=== PATIENT | male | born 1975 | race Caucasian/White ===

== ENCOUNTER 2017-08-05 12:26 | Emergency (ER) | payer OTHER ==
[2017-08-05] MEDS ORDERED: Ketorolac 60 MG/2 ML SDV IM ONE (13:28)
--- NOTE | 2017-08-05 13:38 | EDM.PDOC ---
ED HPI GENERAL MEDICAL PROBLEM - General Chief Complaint: Upper Extremity Injury/Pain Stated Complaint: LEFT ARM PAIN WORK RELATED Time Seen by Provider: 08/05/17 13:25 Source of Information: Reports: Patient History Limitations: Reports: No Limitations - History of Present Illness INITIAL COMMENTS - FREE TEXT/NARRATIVE: HISTORY AND PHYSICAL: History of present illness: [Comes to the emergency room complaining of left upper arm pain. He was lifting a propane tank today to put in his truck when he felt a pop and tearing sensation to his left bicep. He's had difficulty using his arm since this occurred and feels the muscle bunching up in his upper arm. No fever or chills. No other complaints or concerns. This occurred 1 hour prior to arrival in the ER. He has not taken any medication for his symptoms. Has no other complaints or concerns today.] Review of systems: As per history of present illness and below otherwise all systems reviewed and negative. Past medical history: As per history of present illness and as reviewed below otherwise noncontributory. Surgical history: As per history of present illness and as reviewed below otherwise noncontributory. Social history: No reported history of drug or alcohol abuse. Family history: As per history of present illness and as reviewed below otherwise noncontributory. Physical exam: HEENT: Atraumatic, normocephalic. Oral mucous membranes are pink and moist. Extremities: L bicep shows abnormal presentation of the medial aspect of the bicep muscle. Pain with flexion and extension of his elbow. Tender with light palpation of the medial aspect of the bicep. Radial pulse is strong. Cap refill less than 2 seconds. Neurovascular unremarkable. Neuro: Awake, alert, oriented. Motor and sensory unremarkable throughout. Exam nonfocal. Diagnostics: [L humerus x-ray] Therapeutics: [Toradol 60mg IM] Impression: [L upper arm pain, possible medial bicep tear] Plan: [Discussed with patient that his left humerus x-ray is negative for any abnormalities. I'm encouraged him to follow-up with orthopedist early next week for further evaluation as I believe he did tear the distal aspect of his medial left bicep. Rx written for diclofenac 75 mg #30 sig 1 by mouth twice a day 0 refills, hydrocodone 7.5/325 mg #20 sig one by mouth every 6 hours as needed for pain 0 refills. He is placed in a shoulder sling by the nurse and discharge to home with the above prescriptions. All of his questions are answered and concerns are addressed. He is in agreement with today's discussion.] Definitive disposition and diagnosis as appropriate pending reevaluation and review of above. Left Elbow Pain Score (Numeric/FACES): 7 - Related Data Allergies Allergy/AdvReac Type Severity Reaction Status Date / Time Penicillins Allergy Anaphylactic Verified 07/10/16 08:12 Shock Home Meds: Home Meds Hydrochlorothiazide 1 tab PO DAILY 07/10/16 [History] Past Medical History HEENT History: Reports: None Cardiovascular History: Reports: None Respiratory History: Reports: None Genitourinary History: Reports: Renal Calculus Psychiatric History: Reports: None - Past Surgical History Musculoskeletal Surgical History: Reports: Other (See Below) Review of Systems - Review of Systems Review Of Systems: ROS reveals no pertinent complaints other than HPI. ED EXAM, GENERAL - Physical Exam Exam: See Below Course - Vital Signs Last Recorded V/S: Last Vital Signs Temp 99.1 F 08/05/17 15:30 Pulse 70 08/05/17 15:30 Resp 18 08/05/17 15:30 BP 136/81 08/05/17 15:30 Pulse Ox 96 08/05/17 15:30 - Orders/Labs/Meds Orders: Active Orders 24 hr Category Date Time Status Humerus Lt [CR] Stat Exams 08/05/17 13:28 Taken Meds: Medications Discontinued Medications Generic Name Dose Route Start Last Admin Trade Name Freq PRN Reason Stop Dose Admin Ketorolac Tromethamine 60 mg 08/05/17 13:28 08/05/17 13:32 Toradol IM 08/05/17 13:29 60 mg ONETIME ONE Administration Departure - Departure Time of Disposition: 15:00 Disposition: Home, Self-Care 01 Condition: Good Clinical Impression: Left upper arm pain - Discharge Information Instructions: Biceps Tendon Disruption (Distal) Referrals: Michaela Paredes NP [Primary Care Provider] - Forms: ED Department Discharge Additional Instructions: The following information is given to patients seen in the emergency department who are being discharged to home. This information is to outline your options for follow-up care. We provide all patients seen in our emergency department with a follow-up referral. The need for follow-up, as well as the timing and circumstances, are variable depending upon the specifics of your emergency department visit. If you don't have a primary care physician on staff, we will provide you with a referral. We always advise you to contact your personal physician following an emergency department visit to inform them of the circumstance of the visit and for follow-up with them and/or the need for any referrals to a consulting specialist. The emergency department will also refer you to a specialist when appropriate. This referral assures that you have the opportunity for follow-up care with a specialist. All of these measure are taken in an effort to provide you with optimal care, which includes your follow-up. Under all circumstances we always encourage you to contact your private physician who remains a resource for coordinating your care. When calling for follow-up care, please make the office aware that this follow-up is from your recent emergency room visit. If for any reason you are refused follow-up, please contact the [facility] emergency department at and asked to speak to the emergency department charge nurse. [facility] [address], [address] [place] [address] Follow-up with the orthopedist at the clinic listed above. Their office should call you on Monday morning to schedule an appointment. Take medications as prescribed. Wear shoulder sling. Return to ER as needed as discussed. - My Orders Last 24 Hours: My Active Orders 08/05/17 13:28 Humerus Lt [CR] Stat - Assessment/Plan Last 24 Hours: My Active Orders 08/05/17 13:28 Humerus Lt [CR] Stat
[2017-08-05 15:36] VITALS: BP 136/81
--- NOTE | 2017-08-07 06:07 | CR ---
EXAM DATE: 08/05/17 PATIENT'S AGE: 42 Patient: YAQUELIN DUKES Facility: [place], [place] Site . Site : 1975 Study: XRay Extremity Left humerus [id number] 2:01:07 PM Ordering Physician: Doctor Morales Final Report: INDICATION: Left biceps pain. TECHNIQUE: Two views of the left humerus. FINDINGS: No left humeral fracture or dislocation. No intrinsic skeletal lesion. No soft tissue calcifications identified. Impression : Negative left humerus. Dictated by Mariano Mathur MD @ Aug 05 2017 2:34PM (Electronic Signature) Report Signed by Proxy. ADA
== END 2017-08-05 15:34 | disposition home or self-care (01) ==
LOC: MW.ED 12:26
DX: M79.622 Pain in left upper arm (principal); Z88.0 Allergy status to penicillin; Z79.899 Other long term (current) drug therapy; X50.0XXA Overexertion from strenuous movement or load, initial encounter; Y92.89 Other specified places as the place of occurrence of the external cause; Y99.0 Civilian activity done for income or pay
CPT/HCPCS: 73060; 96372; 99283; J1885

== ENCOUNTER 2017-08-09 07:14 | Day surgery (SDC) | payer OTHER ==
[~2017-08-09 07:14] MED LIST: Lidocaine 2% 5 ML SDV ONE; Midazolam 1 MG/ML 2 ML SDV ONE; Ondansetron 4 MG/2 ML SDV ONE; Propofol 200 MG/20 ML SDV ONE; fentaNYL 250 MCG/5 ML SDV ONE
[2017-08-09] MEDS ORDERED: Lactated Ringers 1,000 ML IV SCH ×2 (08:30→09:00)
--- NOTE | 2017-08-09 08:40 | PCM.PREANE ---
Preanesthetic Assessment - Anesthesia/Transfusion/Family Hx Anesthesia History: Prior Anesthesia Without Reaction Family History of Anesthesia Reaction: No Transfusion History: No Prior Transfusion(s) - Review of Systems General: No Symptoms Pulmonary: No Symptoms Cardiovascular: No Symptoms Gastrointestinal: No Symptoms Neurological: No Symptoms Other: Reports: None - Physical Assessment NPO Status Date: 08/08/17 O2 Sat by Pulse Oximetry: 97 Respiratory Rate: 16 Vital Signs: Last Vital Signs Temp 36.7 C 08/09/17 07:20 Pulse 54 L 08/09/17 07:20 Resp 16 08/09/17 07:20 BP 152/74 H 08/09/17 07:20 Pulse Ox 97 08/09/17 07:20 Height: 1.8 m Weight: 113.398 kg ASA Class: 2 Mental Status: Alert & Oriented x3 Airway Class: Mallampati = 2 Dentition: Reports: Normal Dentition ROM/Head Extension: Full Lungs: Clear to Auscultation, Normal Respiratory Effort Cardiovascular: Regular Rate, Regular Rhythm - Allergies Allergies/Adverse Reactions: Allergies Allergy/AdvReac Type Severity Reaction Status Date / Time Penicillins Allergy Anaphylactic Verified 08/08/17 15:33 Shock - Anesthesia Plan Pre-Op Medication Ordered: None - Acknowledgements Anesthesia Type Planned: General Anesthesia Pt an Appropriate Candidate for the Planned Anesthesia: Yes Alternatives and Risks of Anesthesia Discussed w Pt/Guardian: Yes Pt/Guardian Understands and Agrees with Anesthesia Plan: Yes PreAnesthesia Questionnaire HEENT History: Reports: None Cardiovascular History: Reports: None Respiratory History: Reports: None Gastrointestinal History: Reports: None Genitourinary History: Reports: Renal Calculus Musculoskeletal History: Reports: Fracture Other Musculoskeletal History: fx lt foot Neurological History: Reports: None Psychiatric History: Reports: None Endocrine/Metabolic History: Reports: Obesity/BMI 30+ Hematologic History: Reports: None Immunologic History: Reports: None Oncologic (Cancer) History: Reports: None Dermatologic History: Reports: None - Past Surgical History Head Surgeries/Procedures: Reports: None HEENT Surgical History: Reports: Naso-Sinus Surgery, Tonsillectomy Male Surgical History: Reports: Lithotripsy (ES[facility]) Musculoskeletal Surgical History: Reports: Arthroscopic Knee, Other (See Below) Other Musculoskeletal Surgeries/Procedures:: knee surgery x2, surgical repair of fx rt foot - SUBSTANCE USE Smoking Status *Q: Light Tobacco Smoker Tobacco Use Within Last Twelve Months: Snuff/Dip Recreational Drug Use History: No - HOME MEDS Home Medications: Home Meds Hydrochlorothiazide 1 tab PO DAILY 07/10/16 [History] Diclofenac Sodium [Voltaren] 1 tab PO ASDIRECTED PRN 08/08/17 [History] Hydrocodone/Acetaminophen [Hydrocodon-Acetaminoph 7.5-325] 1 tab PO ASDIRECTED PRN 08/08/17 [History] - CURRENT (IN HOUSE) MEDS Current Meds: Current Medications Lactated Ringer's (Ringers, Lactated) 1,000 mls @ 100 mls/hr IV ASDIRECTED CHRISTINA Last Admin: 08/09/17 08:10 Dose: 100 mls/hr Discontinued Medications Fentanyl (Sublimaze) Confirm Administered Dose 250 mcg .ROUTE .STK-MED ONE Stop: 08/09/17 07:10 Lidocaine (Xylocaine-Mpf 2%) Confirm Administered Dose 5 ml .ROUTE .STK-MED ONE Stop: 08/09/17 07:10 Midazolam HCl (Versed 1 Mg/Ml) Confirm Administered Dose 2 mg .ROUTE .STK-MED ONE Stop: 08/09/17 07:10 Midazolam HCl (Versed 1 Mg/Ml) Confirm Administered Dose 2 mg .ROUTE .STK-MED ONE Stop: 08/09/17 07:10 Ondansetron HCl (Zofran) Confirm Administered Dose 4 mg .ROUTE .STK-MED ONE Stop: 08/09/17 07:10 Propofol (Diprivan 20 Ml) Confirm Administered Dose 200 mg .ROUTE .STK-MED ONE Stop: 08/09/17 07:10
[2017-08-09] MEDS ORDERED: Sodium Chloride 0.9% 2.5 ML Syringe FLUSH PRN (08:49)
[2017-08-09] MEDS ORDERED: Sodium Chloride 0.9% 10 ML Syringe FLUSH PRN (08:49)
[2017-08-09] MEDS ORDERED: Ketorolac 10 MG Tab PO PRN (09:15)
[2017-08-09] MEDS ORDERED: Clindamycin Phosphate in D5W 900 MG in Premix Bag 1 BAG IV SCH ×2 (09:15)
[2017-08-09] MEDS ORDERED: Lidocaine 1% 20 ML MDV ONE (09:18)
--- NOTE | 2017-08-09 11:18 | PCM.OPNOTE ---
- General Post-Op/Procedure Note Date of Surgery/Procedure: 08/09/17 Operative Procedure(s): L distal biceps tendon repair Post-Op Diagnosis: L distal biceps tendon rupture Anesthesia Technique: General ET Tube Primary Surgeon: Nataliia Manning Platform Software Engineer: Veronica Luque in mLs: 10 Condition: Good Free Text/Narrative:: #[id number]
[2017-08-09] MEDS: fentaNYL 100 MCG/2 ML SDV IVPUSH PRN ×2 (11:38→12:50)
--- NOTE | 2017-08-09 12:04 | PCM.POSTAN ---
POST ANESTHESIA ASSESSMENT - MENTAL STATUS Mental Status: Alert, Oriented - RESPIRATORY Respiratory Status: Respiratory Rate WNL, Airway Patent, O2 Saturation Stable - CARDIOVASCULAR CV Status: Pulse Rate WNL, Blood Pressure Stable - GASTROINTESTINAL GI Status: No Symptoms - POST OP HYDRATION Hydration Status: Adequate & Stable
--- NOTE | 2017-08-09 12:04 | PCM48HPAN ---
Post Anesthesia Note - EVALUATION WITHIN 48HRS OF ANESTHETIC Vital Signs in Normal Range: Yes Patient Participated in Evaluation: Yes Respiratory Function Stable: Yes Airway Patent: Yes Cardiovascular Function Stable: Yes Hydration Status Stable: Yes Pain Control Satisfactory: Yes Nausea and Vomiting Control Satisfactory: Yes Mental Status Recovered: Yes Resp Rate: 11
[2017-08-09] MEDS: Acetaminophen/HYDROcodone 325-10 MG Tab PO PRN ×2 (12:15→12:50)
--- NOTE | 2017-08-09 12:34 | OR ---
SURGEON: Nataliia Manning MD DATE OF PROCEDURE: 08/09/2017 PREOPERATIVE DIAGNOSIS: Left distal biceps tendon tear. POSTOPERATIVE DIAGNOSIS: Left distal biceps tendon tear. PROCEDURE: Open repair of left distal biceps tendon. JAVA FLEX DEVELOPER: Veronica Luque PA-C. ANESTHESIA: General. ESTIMATED BLOOD LOSS: 10 mL. TOURNIQUET TIME: 0 minutes. COMPLICATIONS: None. DVT PROPHYLAXIS: PAS boot to bilateral lower extremities. IMPLANTS USED: Biomet ToggleLoc distal biceps tendon fixation device. BRIEF HISTORY: Octaviano is a 42-year-old right-hand dominant male, who injured his left upper extremity this past Monday. An MRI did confirm a tear of the distal biceps tendon. 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 I did discuss both surgical and conservative treatment options. He elected to proceed with surgical treatment. The risks and goals of procedure were discussed with the patient and were documented preoperatively. He agreed to proceed. DESCRIPTION OF PROCEDURE: The patient was properly identified and brought to the operating room. He was transferred from the OR cart and placed on the operating table in supine position. General anesthesia was administered. After adequate anesthesia was obtained, the left upper extremity was prepped in standard fashion using ChloraPrep solution. It was then sterilely draped. A time-out was performed to ensure correct site and procedure. Preoperative antibiotics were given. The surgical site had been marked preoperatively. An incision was made over the anterior aspect of the forearm, approximately 3 cm distal to the antecubital crease. The subcutaneous tissues were incised. Electrocautery was used to maintain hemostasis. The track of the biceps tendon was identified. I was able to palpate up and feel the tip of the biceps tendon at the tip of my finger. Using a milking procedure to the biceps, I was able to deliver the end of the biceps tendon into the wound. This was then treated with a modified Krackow stitch to secure the tendon and was sized to a size 8. This was then attached to the ToggleLoc fixation device. It was allowed to retract back into the wound to maintain proper moisture. I then turned my attention distally. The subcutaneous tissues were dissected down to the level of the biceps tuberosity on the radius. The arm was kept in full supination throughout the dissection process. Once the biceps tuberosity was identified, a small portion of remaining biceps tendon was noted. This was incised with electrocautery and was cleared. C-arm imaging confirmed that we were centered on the biceps tuberosity. A guide pin was then placed into the biceps tuberosity in a slightly distal and medial direction. This was placed bicortically. An 8 mm reamer was then used to over drill the first cortex. A 4.5 mm drill was used to drill through the second cortex and the guide pin was removed. The ToggleLoc fixation device was then passed through the cortices and pulled back. C-arm imaging confirmed that the ToggleLoc was deployed along the cortex of the biceps tuberosity. The arm was then brought into slight flexion, and the biceps tendon was brought into the prepared hole. The ToggleLoc completely tightened and provided adequate fixation. The elbow was then taken through a range of motion while palpating the biceps tendon. No pistoning of the tendon occurred. I was able to get full extension on the table with full pronation and supination. The wound was then copiously irrigated with saline solution. It should be noted that the wound was copiously irrigated following the drilling procedure as well to remove any bony debris. The subcutaneous tissues were then closed with 3-0 Vicryl. The skin was closed with a running 4- 0 Monocryl suture. Steri-Strips and Benzoin were placed. Xeroform gauze was placed over the wound and a bulky dressing was applied. He was placed in a well- padded posterior splint with the elbow in 90 degrees of flexion. He was awakened from his anesthetic and transferred back to the operating room cart. He was brought to recovery room in stable condition. All needle and sponge counts were correct. LEEROY / SOUMYA /[id number]
[2017-08-09 19:01] VITALS: BP 132/76
--- NOTE | 2017-08-10 10:00 | CR ---
EXAMINATION: Left elbow HISTORY: Biceps tendon repair COMPARISON: 08/08/2017 TECHNIQUE: 2 views FINDINGS/IMPRESSION: Operative control films demonstrate postoperative changes secondary to biceps te ndon repair with an anchor noted at the radial tuberosity.
== END 2017-08-09 14:05 | disposition home or self-care (01) ==
LOC: MW.SDS 07:14
PROVIDERS: ATTEND Orthopaedic Surgery
DX: S46.212A Strain of muscle, fascia and tendon of other parts of biceps, left arm, initial encounter (principal); J01.90 Acute sinusitis, unspecified; G47.33 Obstructive sleep apnea (adult) (pediatric); E66.9 Obesity, unspecified; F17.290 Nicotine dependence, other tobacco product, uncomplicated; J30.2 Other seasonal allergic rhinitis; X50.0XXA Overexertion from strenuous movement or load, initial encounter; Z88.0 Allergy status to penicillin; Z79.899 Other long term (current) drug therapy; Z90.89 Acquired absence of other organs; Z68.34 Body mass index [BMI] 34.0-34.9, adult
CPT/HCPCS: 24341; 76000; A9270; J2250; J2405; J3010; J7120; 01710; J2704

== ENCOUNTER 2020-05-28 09:28 | Emergency (ER) | payer BC, OTHER ==
--- NOTE | 2020-05-28 10:12 | EDM.PDOC ---
ED HPI GENERAL MEDICAL PROBLEM - General Chief Complaint: Lower Extremity Injury/Pain Stated Complaint: KNEE SWELLING Time Seen by Provider: 05/28/20 09:52 Source of Information: Reports: Patient History Limitations: Reports: No Limitations - History of Present Illness INITIAL COMMENTS - FREE TEXT/NARRATIVE: Patient is a 45-year-old female who presents today for left knee pain and swelling. Pain states he woke up today with his knee was more swollen and painful. Patient denies any injuries to the leg. Patient has hard time putting pressure on the leg and ranging the leg. Denies any other complaints. left knee Pain Score (Numeric/FACES): 8 - Related Data Allergies Allergy/AdvReac Type Severity Reaction Status Date / Time Penicillins Allergy Anaphylactic Verified 05/28/20 09:42 Shock Home Meds: Home Meds Dextroamphetamine/Amphetamine [Dextroamp-Amphetamin 20 mg Tab] 20 mg PO BID 05/28/20 [History] Past Medical History HEENT History: Reports: None Cardiovascular History: Reports: None Respiratory History: Reports: None Gastrointestinal History: Reports: None Genitourinary History: Reports: Renal Calculus Musculoskeletal History: Reports: Fracture Other Musculoskeletal History: fx lt foot Neurological History: Reports: None Psychiatric History: Reports: ADHD Endocrine/Metabolic History: Reports: Obesity/BMI 30+ Insulin Pump Model and Base Loader: None Hematologic History: Reports: None Immunologic History: Reports: None Oncologic (Cancer) History: Reports: None Dermatologic History: Reports: None - Infectious Disease History Infectious Disease History: Reports: Chicken Pox - Past Surgical History Head Surgeries/Procedures: Reports: None HEENT Surgical History: Reports: Naso-Sinus Surgery, Tonsillectomy Male Surgical History: Reports: Lithotripsy ([facility]) Musculoskeletal Surgical History: Reports: Arthroscopic Knee, Other (See Below) Other Musculoskeletal Surgeries/Procedures:: knee surgery x2, surgical repair of fx rt foot Social & Family History - Family History Family Medical History: No Pertinent Family History - Caffeine Use Caffeine Use: Reports: Coffee, Energy Drinks, Soda, Tea - Recreational Drug Use Recreational Drug Use: No Review of Systems - Review of Systems Review Of Systems: See Below Constitutional: Reports: No Symptoms Eyes: Reports: No Symptoms Ears: Reports: No Symptoms Nose: Reports: No Symptoms Mouth/Throat: Reports: No Symptoms Respiratory: Reports: No Symptoms Cardiovascular: Reports: No Symptoms GI/Abdominal: Reports: No Symptoms Genitourinary: Reports: No Symptoms Musculoskeletal: Reports: Leg Pain Skin: Reports: No Symptoms Neurological: Reports: No Symptoms Psychiatric: Reports: No Symptoms ED EXAM, GENERAL - Physical Exam Exam: See Below Exam Limited By: No Limitations General Appearance: Alert, WD/WN Peripheral Pulses: 2+: Popliteal (L), Popliteal (R) Extremities: Limited Range of Motion (due to swelling and pain to left leg). No: Non-Tender, Increased Warmth, Redness Neurological: Alert, Oriented, Normal Cognition ED TRAUMA EXTREMITY PROCEDURES - Additional/Other Procedure(s) Other (Free Text) Procedure(s): We attempted an arthrocentesis of patient's left knee. Only a small amount of blood was returned. Patient he wished clean with Betadine and 1% lidocaine was used for the procedure. Course - Vital Signs Last Recorded V/S: Last Vital Signs Temp 96.8 F L 05/28/20 09:43 Pulse 80 05/28/20 12:10 Resp 18 05/28/20 12:10 BP 131/69 05/28/20 12:10 Pulse Ox 97 05/28/20 12:10 - Orders/Labs/Meds Labs: Laboratory Tests 05/28/20 05/28/20 05/28/20 Range/Units 10:45 10:45 10:45 WBC 7.39 (4.0-11.0) K/uL RBC 4.82 (4.50-5.90) M/uL Hgb 14.8 (13.0-17.0) g/dL Hct 43.1 (38.0-50.0) % MCV 89.4 (80.0-98.0) fL MCH 30.7 (27.0-32.0) pg MCHC 34.3 (31.0-37.0) g/dL RDW Std Deviation 42.2 (28.0-62.0) fl RDW Coeff of Vicky 13 (11.0-15.0) % Plt Count 354 (150-400) K/uL MPV 9.10 (7.40-12.00) fL Neut % (Auto) 50.8 (48.0-80.0) % Lymph % (Auto) 36.7 (16.0-40.0) % [place] % (Auto) 7.3 (0.0-15.0) % Eos % (Auto) 4.1 (0.0-7.0) % Baso % (Auto) 1.1 (0.0-1.5) % Neut # (Auto) 3.8 (1.4-5.7) K/uL Lymph # (Auto) 2.7 H (0.6-2.4) K/uL [place] # (Auto) 0.5 (0.0-0.8) K/uL Eos # (Auto) 0.3 (0.0-0.7) K/uL Baso # (Auto) 0.1 (0.0-0.1) K/uL Nucleated RBC % 0.0 /100WBC Nucleated RBCs # 0 K/uL ESR 1 (0-14) mm/hr Sodium 142 (136-148) mmol/L Potassium 4.2 (3.5-5.1) mmol/L Chloride 105 (98-107) mmol/L Carbon Dioxide 26.6 (21.0-32.0) mmol/L BUN 15 (7.0-18.0) mg/dL Creatinine 1.1 (0.8-1.3) mg/dL Est Cr Clr Drug Dosing 89.41 mL/min Estimated GFR (MDRD) > 60.0 ml/min Glucose 92 (74-106) mg/dL Calcium 9.2 (8.5-10.1) mg/dL C-Reactive Protein 0.30 (0.00-0.90) mg/dL Meds: Medications Discontinued Medications Generic Name Dose Route Start Last Admin Trade Name Marcq PRN Reason Stop Dose Admin Lidocaine 5 ml 05/28/20 11:45 05/28/20 11:55 Xylocaine-Mpf 2% INJECT 05/28/20 11:46 Not Given ONETIME ONE Lidocaine HCl 5 ml 05/28/20 11:51 05/28/20 12:14 Xylocaine-Mpf 1% INJECT 05/28/20 11:52 5 ml ONETIME ONE Administration Lidocaine HCl Confirm 05/28/20 12:19 05/28/20 12:20 Xylocaine-Mpf 1% Administered 05/28/20 12:20 Not Given Dose 5 ml .ROUTE .STK-MED ONE Lidocaine HCl 5 ml 05/28/20 12:20 Xylocaine-Mpf 1% INJECT 05/28/20 12:21 ONETIME ONE - Re-Assessments/Exams Free Text/Narrative Re-Assessment/Exam: 05/28/20 12:38 Wr attemptrf an arthrocentesisin the patient knee with minimal return of fluid. Will now wrap patient's knee and have patient keep ice and elevate and have patient follow-up with orthopedics for further care. Departure - Departure Time of Disposition: 12:39 Disposition: Home, Self-Care 01 Condition: Good Clinical Impression: Knee effusion, left - Discharge Information *PRESCRIPTION DRUG MONITORING PROGRAM REVIEWED*: Not Applicable *COPY OF PRESCRIPTION DRUG MONITORING REPORT IN PATIENT SNEHA: Not Applicable Instructions: Knee Effusion Referrals: PCP,None [Primary Care Provider] - Forms: ED Department Discharge Additional Instructions: The following information is given to patients seen in the emergency department who are being discharged to home. This information is to outline your options for follow-up care. We provide all patients seen in our emergency department with a follow-up referral. The need for follow-up, as well as the timing and circumstances, are variable depending upon the specifics of your emergency department visit. If you don't have a primary care physician on staff, we will provide you with a referral. We always advise you to contact your personal physician following an emergency department visit to inform them of the circumstance of the visit and for follow-up with them and/or the need for any referrals to a consulting specialist. The emergency department will also refer you to a specialist when appropriate. This referral assures that you have the opportunity for follow-up care with a specialist. All of these measure are taken in an effort to provide you with optimal care, which includes your follow-up. Under all circumstances we always encourage you to contact your private physician who remains a resource for coordinating your care. When calling for follow-up care, please make the office aware that this follow-up is from your recent emergency room visit. If for any reason you are refused follow-up, please contact the [facility] Department at and asked to speak to the emergency department charge nurse. Please follow up with your primary care physician. If you do not have a primary care physician, see below: [facility] [address], [address] [place] [address] Follow with orthopedic department with the number listed above. We will also make referral an RN as well. If you have any increased pain or difficulty walking please return to the ED. Sepsis Event Note (ED) - Evaluation Sepsis Screening Result: No Definite Risk - Focused Exam Vital Signs: Vital Signs Temp Pulse Resp BP Pulse Ox 05/28/20 12:10 80 18 131/69 97 05/28/20 09:43 96.8 F L 88 18 130/80 97 - Assessment/Plan Assessment:: Is a 45-year-old male presents today for left knee pain. Patient has some swelling on the knee but has no pain when ranging. Patient does have some pain when touching upper part of the knee as well as located. Will obtain labs and x-ray.
[2020-05-28 11:17] LABS: BLOOD UREA NITROGEN,BUN 15 mg/dL (7.0-18.0); CARBON DIOXIDE,CO2 26.6 mmol/L (21.0-32.0); CHLORIDE,CL 105 mmol/L (98-107); GLUCOSE RANDOM 92 mg/dL (74-106); POTASSIUM,K 4.2 mmol/L (3.5-5.1); SODIUM,NA 142 mmol/L (136-148)
--- NOTE | 2020-05-28 11:41 | CR ---
Indication: Left knee swelling Technique: Left knee 3 views Comparison: None Findings: Bones: Alignment is normal. No fractures or bone lesions. Joint spaces: Knee joint space is not well visualized on the AP image. No significant degenerative changes suspected. There is a joint effusion of uncertain etiology. Soft tissues: Unremarkable. Dictated by Mata Kaur MD @ May 28 2020 11:35AM Signed by Dr. Mata Kaur @ May 28 2020 11:39AM
[2020-05-28] MEDS ORDERED: Lidocaine 2% 5 ML SDV INJECT ONE (11:45)
[2020-05-28 12:13] VITALS: BP 131/69; PULSE 80
== END 2020-05-28 12:45 | disposition home or self-care (01) ==
LOC: MW.ED 09:28
DX: M25.462 Effusion, left knee (principal); F90.9 Attention-deficit hyperactivity disorder, unspecified type; E66.9 Obesity, unspecified; Z68.38 Body mass index [BMI] 38.0-38.9, adult; Z88.0 Allergy status to penicillin; Z79.899 Other long term (current) drug therapy
CPT/HCPCS: 20610; 36415; 73562; 80048; 85025; 85652; 86140; 99283; J2001